=== PATIENT | female | born 1990 | race African-American/Black ===

== ENCOUNTER 2022-08-14 19:51 | Emergency (ER) | payer MEDICAID ==
[~2022-08-14] VITALS: Ht 162.6 cm; Wt 88.0 kg
[2022-08-14 21:23] LABS: BASOPHILS % 0.5 % (0.0-2.0); EOSINOPHILS % 3.5 % (0.0-5.0); HEMATOCRIT. 33.6 % (36.0-48.0); HEMOGLOBIN. 11.1 g/dL (12.0-16.0); LYMPHOCYTES % 43.7 % (20.0-50.0); MEAN CORPUSCULAR HEMOGLOBIN 28.2 pg (28.0-32.0); MEAN PLATELET VOLUME 6.6 fl (7.4-10.4); MONOCYTES % 7.2 % (2.0-8.0); NEUTROPHILS % 45.1 % (40.0-76.0); PLATELET 299 x1000/uL (130-400); RED BLOOD CELL COUNT 3.95 mill/uL (4.2-5.4); RED CELL DISTRIBUTION WIDTH 13.8 % (11.6-14.6)
[2022-08-14 21:32] LABS: HCG SCREEN POSITIVE
[2022-08-14 21:35] LABS: CHLORIDE 109 mEq/L (98-107)
[2022-08-14] MEDS ORDERED: RHO(D) IMMUNE GLOBULIN 300 MCG/SYR IM ONE (22:45)
[2022-08-15 00:01] VITALS: BP 121/77
== END 2022-08-15 00:25 | disposition home or self-care (01) ==
LOC: ER 19:51
DX: O36.4XX0 Maternal care for intrauterine death, not applicable or unspecified (principal); Z3A.08 8 weeks gestation of pregnancy; Z98.890 Other specified postprocedural states
CPT/HCPCS: 36415; 36430; 76801; 80053; 84702; 84703; 85025; 86850; 86900; 90384; 96372; 99285; J2791

== ENCOUNTER 2023-07-12 07:58 | Emergency (ER) | payer MEDICAID ==
[~2023-07-12] VITALS: Ht 165.1 cm; Wt 65.0 kg
[2023-07-12 07:59] VITALS: BP 130/80; PULSE 100; TEMP 98.5; O2SAT 97
[2023-07-12] MEDS ORDERED: IBUP-2030 MT (08:18)
[2023-07-12 08:25] VITALS: RESP 16
[2023-07-12] MEDS: KETOROLAC 60MG/2ML VIAL IM ONE (08:25)
== END 2023-07-12 15:16 | disposition home or self-care (01) ==
LOC: ER 08:06
DX: M54.50 Low back pain, unspecified (principal); F41.9 Anxiety disorder, unspecified; Z98.890 Other specified postprocedural states
CPT/HCPCS: 96372; 99283; J1885; Z7610